=== PATIENT | female | born 1995 | race Caucasian/White ===

== ENCOUNTER 2017-10-22 02:11 | Emergency (ER) | payer SELFPAY ==
[~2017-10-22 02:11] MED LIST: IBUP600T26 PO; NAPR220T95 PO
== END 2017-10-22 04:45 | disposition left against medical advice (07) ==
LOC: NEPB 02:11
DX: Z04.71 Encounter for examination and observation following alleged adult physical abuse (principal); Z53.21 Procedure and treatment not carried out due to patient leaving prior to being seen by health care provider
CPT/HCPCS: 99281